=== PATIENT | male | born 1970 | race Caucasian/White ===

== ENCOUNTER 2020-04-11 10:50 | Inpatient (IN) | payer OTHER ==
[2020-04-11] MEDS ORDERED: heparin 10,000 units/1 ML INJ IV ONE (16:40)
--- NOTE | 2020-04-11 18:00 | NUR ---
patient arrived to PACU via gurney and transferred to hospital bed. patient hooked up to ventilator and to bedside monitor. labs drawn
--- NOTE | 2020-04-11 18:42 | NUR ---
RT and PA at bedside. patient extubated to comfort care and given 1mg morphine.
--- NOTE | 2020-04-11 18:46 | NUR ---
Patient extubated to comfort care at 1846.
[2020-04-11] MEDS: LORazepam 2 mg/ml vial IV PRN ×5 (19:02→20:04)
[2020-04-11] MEDS: morphine 10mg/ml inj. IV PRN ×3 (19:03→19:52)
[2020-04-11] MEDS ORDERED: HYDROmorphone 1 mg/ml syringe IV ONE (19:05)
[2020-04-11] MEDS ORDERED: morphine 10mg/ml inj. IV ONE (19:15)
[2020-04-11] MEDS ORDERED: HYDROmorphone inj. 0.5 MG/0.5 ML DISP.SYRIN IV PRN (20:15)
[2020-04-11] MEDS ORDERED: acetaminophen 650mg rectal suppository RC PRN (20:15)
[2020-04-11] MEDS ORDERED: normal saline 1000ml 1,000 ML IV SCH (20:15)
[2020-04-11] MEDS ORDERED: ondansetron/PF 4mg/2ml inj IV PRN (20:15)
[2020-04-11] MEDS ORDERED: LORazepam 2 mg/ml vial IV PRN (20:25)
--- NOTE | 2020-04-11 20:37 | NUR ---
patient report called to Dorinda; all questions answered.
--- NOTE | 2020-04-11 20:37 | NUR ---
Mother Siri Carrasco contact information: ; would like to be called when patient passes away.
[2020-04-11 20:55] VITALS: BP 90/57
--- NOTE | 2020-04-11 20:55 | NUR ---
Patient in room JL 351. I have received report from OSVALDO COFFEY RN and had the opportunity to ask questions and assume patient care. PT ARRIVED FROM RECOVERY ROOM 2039 TO THE FLOOR TRANSFERRED INTO ROOM AND BED BY RECOVERY ROOM AND SURGICAL STAFF. SKIN CARE PROVIDED ASSESSED AND VITALS TAKEN. PT ON COMFORT CARE. RESP UNEVEN SLIGHTLY LABORED. Addendum: 04/11/20 at 2117 by Margaret Villanueva RN Amended: Links added.
--- NOTE | 2020-04-11 20:55 | NUR ---
patient transferred with all belongings via gurney to room 351.
--- NOTE | 2020-04-11 22:00 | NUR ---
VANITA SUCTIONED SCANT PINK SEROUS TINT FLUID FROM ORALLY. RESP IRREGULAR AND UNEVEN.
--- NOTE | 2020-04-11 22:50 | NUR ---
NOTED ABSENT BREATH AND ASSESSMENT OF PT DONE .PUT ON EMBRYOLOGY PROFESSOR ASSESSED FOR BREATH SOUNDS AND PULSE. NOTED ABSENT. MONITOR AT 2300 SHOWED ASYSTOLE. AND PRONOUNCE AT THIS TIME. 2304 dog show judge WENDI NOTIFIED THE CORONOR. RECIEVED OK TO RELEASE BODY TO [employer]2329 CALLED [employer] THEY CLEARED BODY AT 2345 [facility] 2309 CHARGE MEGHNA GAMA RN IS TO DOCUMENT YES TO ALL APPLICABLE AREAS Pronouncement of : 1. Time Physician Notified:[id number] 2. Date of :04/11/20 3. Time of : 2299 4. DNR/Withdraw life support documented:04/11/20 5. Monitor strip has been placed on chart:YES 2299 ASYSTOLE 6. Assessment process is of one-minute duration and includes following criteria: a) Patient is unresponsive to all stimuli: NON REACTIVE b) Pupils fixed and non-reactive:FIXED NON REACTIVE c) Auscultation of precordium reveals absence of heart tones: NO HEART TONES d) Auscultation of lungs reveals absence of breath sounds:NO BREATH SOUNDS e) Absence of blood pressure / all vital signs: NO BP f) QRS complexes are not present on monitor / EKG strip: ABSENT ON CHART g) Pacer spikes without capture:NO PACEMAKER 4. Comments: BILAT BLACK EYES PINK RED SEROUS DRAINAGE FROM NARES&SCATTERED ABRASIONS TO HEAD CHEST&ARMS. INCISIONS TO BACK, VALLADARES IN PLACE, LEFT FEMORAL QUAD LUMEN CENTRAL LINE IN PLACE FOR RISK MANAGEMENT CONSULTANT.
--- NOTE | 2020-04-12 01:30 | NUR ---
mortuary picked up pt and now discharged. belongings sent with the mortuar. see expiration sheet in paper chart.
== END 2020-04-11 23:00 | disposition expired | DRG 951 ==
LOC: EEVIPCON → PACU 16:48 → UNDOADMIN 16:48 → PACU 20:14 → SUR 3N 21:10 → PACU 21:10 → UNDODISIN 23:00
PROC: 5A1935Z Respiratory Ventilation, Less than 24 Consecutive Hours (ICD-10-PCS; principal; 2020-04-11)
PROC: 0BH17EZ Insertion of Endotracheal Airway into Trachea, Via Natural or Artificial Opening (ICD-10-PCS; 2020-04-11)
DX: Z51.5 Encounter for palliative care (principal); Z66 Do not resuscitate
CPT/HCPCS: 94002; 94760; G0378; J1170; J1644; J2060; J2270; J7030